=== PATIENT | female | born 1990 | race Caucasian/White ===

== ENCOUNTER 2016-08-12 13:26 | Emergency (ER) | payer MEDICAID, OTHER ==
[~2016-08-12] VITALS: Ht 152.4 cm; Wt 45.0 kg
[~2016-08-12 13:26] MED LIST: ACET325T33 PO; BACTDS PO; CEPH-443 PO; ELIM TOP; IBUP-1542 PO
[2016-08-12 13:35] VITALS: Ht 152.4 cm; Wt 45.0 kg
[2016-08-12] MEDS ORDERED: ONDANSETRON 4 MG INJ IV STA (15:50)
[2016-08-12] MEDS ORDERED: DICLOFENAC SODIUM 37.5 MG/ML VIAL IV STA (15:50)
[2016-08-12 16:56] LABS: ADD UMIC YES; URINE BILIRUBIN (Dip) 2+ (NEGATIVE); URINE BLOOD (Dip) 3+ (NEGATIVE); URINE COLOR BROWN (YELLOW); URINE GLUCOSE (Dip) NEGATIVE (NEGATIVE); URINE KETONES (Dip) TRACE (NEGATIVE); URINE LEUKOCYTE ESTERASE (Dip) 2+ (NEGATIVE); URINE NITRITE (Dip) POSITIVE (NEGATIVE); URINE TOTAL PROTEIN (Dip) 2+ (NEGATIVE); URINE UROBILINOGEN (Dip) 2.0 E.U./dL (0.1-1.0)
[2016-08-12 16:59] LABS: BASOPHIL # 0.1 10^3/ul (0.0-0.1); BASOPHILS % 0.3 % (0.0-2.0); EOSINOPHILS % 0.2 % (0.0-7.0); HEMATOCRIT 36.2 % (37.0-47.0); HEMOGLOBIN 12.5 g/dl (12.0-16.0); LYMPHOCYTES # 1.6 10^3/ul (0.8-2.9); LYMPHOCYTES % 10.8 % (15.0-51.0); MEAN CORPUSCULAR HGB CONC 34.4 g/dl (32.0-37.0); MEAN PLATELET VOLUME 9.4 fl (7.4-10.4); MONOCYTE # 0.8 10^3/ul (0.3-0.9); MONOCYTES % 5.6 % (0.0-11.0); NEUTROPHIL # 12.6 10^3/ul (1.6-7.5); NEUTROPHILS % 83.1 % (39.0-77.0); PLATELET COUNT 209 10^3/UL (140-440); RED BLOOD COUNT 4.02 10^6/ul (4.20-5.40); RED CELL DISTRIBUTION WIDTH 14.1 % (11.5-14.5); UNCORRECTED WBC 15.1 10^3/ul (4.8-10.8); WHITE BLOOD COUNT 15.1 10^3/ul (4.8-10.8)
[2016-08-12 17:00] LABS: CONDITION 1
[2016-08-12 17:19] LABS: ALBUMIN 3.7 g/dl (3.3-4.9)
[2016-08-12 17:20] LABS: POTASSIUM 3.6 mmol/L (3.5-5.1)
[2016-08-12 17:22] LABS: ALBUMIN/GLOBULIN RATIO 0.86; BILIRUBIN,INDIRECT 0.9 mg/dl (0-1.1); BILIRUBIN,TOTAL 0.9 mg/dl (0.2-1.3); CREATININE 0.56 mg/dl (0.44-1.00)
[2016-08-12 17:37] LABS: BACTERIA,URINE FEW; ICTOTEST NEGATIVE (NEGATIVE); SQUAMOUS EPITHELIAL CELL,UR MODERATE; URINE RBCS >200 /HPF (0)
[2016-08-12 17:38] LABS: TRICHOMONAS,URINE RARE
[2016-08-12] MEDS ORDERED: SOD CHLORIDE 0.9% 100 ML ONE (17:39)
[2016-08-12] MEDS ORDERED: IOHEXOL 300MG/ML 150 ML BTL ONE (17:39)
--- NOTE | 2016-08-12 18:23 | RADRPT ---
PROCEDURE: CT Abdomen and Pelvis with Contrast CLINICAL INDICATION: Abdominal pain TECHNIQUE: Transaxial images were obtained through the abdomen and pelvis on a multi-slice scanner following the intravenous administration of iodinated contrast. No oral contrast had previously be en given. Sagittal and coronal re-formations were subsequently reconstructed. One or more of the following dose reduction techniques were used: - Automated exposure control. - Adjustment of the mA and/or kV according to patient size. - Use of iterative reconstruction technique. Radiation dose: CTDIvol = 7.31 mGy; DLP = 358.22 mGy-cm. COMPARISON: No prior studies are available for comparison. FINDINGS: Lung bases: The visualized lung bases appear unremarkable. Liver: Normal in size and in attenuation. There is no focal lesion. The hepatic veins and portal vei ns appear patent. Gallbladder: The wall is not thickened. No radiopaque stones are identified. Bile ducts: The intra and extrahepatic bile ducts are normal in caliber. Pancreas: Appears normal with no mass or inflammation evident. Spleen: Normal in size with no focal lesion. Adrenals: Normal with no mass identified. Kidneys, ureters and bladder: The kidneys enhance normally and are normal in size and there is no ma ss, pathological calcification, or hydronephrosis evident. There is no perinephric stranding. The ur eters are normal in caliber and no ureteroliths are identified. The bladder is less than optimally d istended. Reproductive organs: The uterus is enlarged and there is thickening of the endometrial cavity which appears heterogeneous with a 10.7 by 2.7 x 1.8 cm focal area of increased density seen in the fundal endometrial cavity suspicious for clot. There is hypervascularity about the uterus. There is a 2. 5 cm in maximal diameter right adnexal cyst. Stomach, bowel, and mesentery: The stomach appears unremarkable. Substantial stool is seen within t he colon particularly on the right but there is no evidence of bowel obstruction or inflammation. Appendix: A normal-appearing vermiform appendix is evident. Peritoneum: There is no free intraperitoneal fluid or air. Aorta: Normal in caliber with no aneurysmal dilatation. IVC: Unremarkable. Lymph nodes: No pathologically enlarged nodes are identified. Osseous structures: The osseous elements appear intact. IMPRESSION: 1. Enlarged hypervascular uterus with thickening of the endometrial cavity which appears to contain some clot. Correlation with pelvic sonography may be useful to further evaluate. A 2.4 cm in maxi mal diameter right adnexal cyst is noted. 2. No evidence of bowel obstruction or inflammation. Substantial stool is seen within the colon an d there is a normal-appearing vermiform appendix. 3. No evidence of urinary outflow obstruction or ureterolithiasis. 4. There is no free intraperitoneal fluid or air. 5. Otherwise, unremarkable CT scan of the abdomen and pelvis. Physician Mauro Date Time Electronically viewed and signed by Cody Michaels Physician on 08/12/2016 18:23 RH/
[2016-08-12] MEDS ORDERED: CEFTRIAXONE 1 GM/50 ML (PMX) 50 ML IVPB ONE (19:00)
[2016-08-12] MEDS ORDERED: IBUP-1542 PO (19:36)
[2016-08-12] MEDS ORDERED: CEPH-443 PO (19:36)
--- NOTE | 2016-08-12 19:39 | ERD ---
ER Documentation Chief Complaint Date/Time DATE: 08/12/16 TIME: 19:37 Chief Complaint AP HPI This 25-year-old female presents with lower abdominal pain for last day. She said when she pushed on her lower abdomen she had vaginal bleeding. She denies fevers, vomiting, urinary complaints. She denies . ROS All systems reviewed and are negative except as per history of present illness. Medications Home Meds Active Scripts Ibuprofen* (Motrin*) 600 Mg Tab, 600 MG PO Q6, #15 TAB Prov:GRZEGORZ KOTHARI MD 08/12/16 Cephalexin* (Keflex*) 500 Mg Capsule, 500 MG PO QID for 5 Days, CAP Prov:GRZEGORZ KOTHARI MD 08/12/16 Ibuprofen* (Motrin*) 600 Mg Tab, 600 MG PO Q6H Y for PAIN AND OR ELEVATED TEMP, #30 TAB Prov:PAO CARNEY MD 02/14/16 Sulfamethoxazole-Trimethoprim* (Bactrim* DS) 800-160 Mg Tab, 1 TAB PO BID for 7 Days, TAB Prov:PAO CARNEY MD 02/14/16 Cephalexin* (Keflex*) 500 Mg Capsule, 500 MG PO QID for 7 Days, CAP Prov:PAO CARNEY MD 02/14/16 Acetaminophen* (Tylenol*) 325 Mg Tablet, 1 TAB PO Q6 Y for PAIN AND OR ELEVATED TEMP, #20 TAB Prov:LISA THOMAS PA-C 02/14/16 Permethrin* (Elimite*) 5% Cr, 1 APPLIC TOP ONCE, #1 TUB Keep on for 12 hours and rinse after. Repeat in 1 week. Prov:LISA THOMAS-C 02/14/16 Cephalexin* (Keflex*) 500 Mg Capsule, 500 MG PO QID for 7 Days, CAP Prov:LISA THOMAS-C 02/14/16 Sulfamethoxazole-Trimethoprim* (Bactrim* DS) 800-160 Mg Tab, 1 TAB PO BID for 7 Days, TAB Prov:LISA THOMAS-C 02/14/16 Ibuprofen* (Motrin*) 600 Mg Tab, 600 MG PO Q8 for PAIN AND/OR INFLAMMATION, #30 TAB Prov:FER WINTER MD 12/24/15 Allergies Allergies: Coded Allergies: prochlorperazine (Verified Allergy, Mild, RASH, 08/12/16) PMhx/Soc History of Surgery: Yes (C section X3) Anesthesia Reaction: No Hx Neurological Disorder: No Hx Respiratory Disorders: No Hx Cardiac Disorders: No Hx Psychiatric Problems: No Hx Miscellaneous Medical Probl: No Hx Alcohol Use: No Hx Substance Use: Yes (Methamphetamine) Hx Tobacco Use: No Smoking Status: Former smoker Physical Exam Vitals Vital Signs Date Time Temp Pulse Resp B/P Pulse Ox O2 Delivery O2 Flow Rate FiO2 08/12/16 13:35 98.1 126 20 140/67 99 Physical Exam Const: [] Alert, [id number], disheveled. Head: Atraumatic Eyes: Normal Conjunctiva ENT: Normal External Ears, Nose and Mouth. Neck: Full range of motion..~ No meningismus. Resp: Clear to auscultation bilaterally Cardio: Regular rate and rhythm, no murmurs Abd: Soft, minimal suprapubic tenderness. No tenderness at McBurney's point no rebound. No Coronado sign. R, non distended. Normal bowel sounds Skin: No petechiae or rashes Back: No midline or flank tenderness Ext: No cyanosis, or edema Neur: Awake and alert Psych: Normal Mood and Affect Result Diagram: 08/12/16 1625 08/12/16 1625 Results 24 hrs Laboratory Tests Test 08/12/16 16:25 Alanine Aminotransferase (ALT/SGPT) 22IU/L Albumin 3.7g/dl Albumin/Globulin Ratio 0.86 Alkaline Phosphatase 118IU/L Anion Gap 17 Aspartate Amino Transf (AST/SGOT) 16IU/L Basophils # 0.110^3/ul Basophils % 0.3% Blood Urea Nitrogen 9mg/dl Calcium Level 9.0mg/dl Carbon Dioxide Level 29mmol/L Chloride Level 99mmol/L Creatinine 0.56mg/dl Direct Bilirubin 0.00mg/dl Eosinophils # 0.010^3/ul Eosinophils % 0.2% Globulin 4.30g/dl Glucose Level 89mg/dl Hematocrit 36.2% Hemoglobin 12.5g/dl Indirect Bilirubin 0.9mg/dl Lipase 15U/L Lymphocytes # 1.610^3/ul Lymphocytes % 10.8% Mean Corpuscular Hemoglobin 31.0pg Mean Corpuscular Hemoglobin Concent 34.4g/dl Mean Corpuscular Volume 90.0fl Mean Platelet Volume 9.4fl Monocytes # 0.810^3/ul Monocytes % 5.6% Neutrophils # 12.610^3/ul Neutrophils % 83.1% Nucleated Red Blood Cells # 0.010^3/ul Nucleated Red Blood Cells % 0.0/100WBC Platelet Count 40959^3/UL Potassium Level 3.6mmol/L Red Blood Count 4.0210^6/ul Red Cell Distribution Width 14.1% Sodium Level 141mmol/L Total Bilirubin 0.9mg/dl Total Protein 8.0g/dl Urine Bacteria FEW Urine Bilirubin 2+ Urine Clarity CLOUDY Urine Color BROWN Urine Glucose NEGATIVE% Urine Hemoglobin 3+ Urine Ictotest NEGATIVE Urine Ketones TRACE Urine Leukocyte Esterase 2+ Urine Microscopic RBC >200/HPF Urine Microscopic WBC 5-10/HPF Urine Nitrite POSITIVE Urine Specific [place] 1.025 Urine Squamous Epithelial Cells MODERATE Urine Total Protein 2+ Urine Trichomonas RARE Urine Urobilinogen 2.0 E.U./dL Urine pH 5.5 White Blood Count 15.110^3/ul Current Medications Medications (Trade) Dose Ordered Sig/Nando Route PRN Reason Start Time Stop Time Status Last Admin Dose Admin Ondansetron HCl (Zofran Inj) 4 mg ONCE STAT IV 08/12/16 15:50 08/12/16 15:52 DC 08/12/16 16:36 Diclofenac Sodium (Dyloject) 37.5 mg ONCE STAT IV 08/12/16 15:50 08/12/16 15:52 DC 08/12/16 16:36 IV Flush 10 ml 10 ml STK-MED ONCE .ROUTE 08/12/16 17:39 08/12/16 17:40 DC 08/12/16 17:53 Sodium Chloride (NS) 100 ml @ ud STK-MED ONCE .ROUTE 08/12/16 17:39 08/12/16 17:40 DC 08/12/16 17:53 Iohexol 150 ml 150 ml STK-MED ONCE .ROUTE 08/12/16 17:39 08/12/16 17:40 DC 08/12/16 17:53 Ceftriaxone Sodium (Rocephin) 50 ml @ 100 mls/hr ONCE ONCE IVPB 08/12/16 19:00 2/1/17 19:29 DC 08/12/16 19:15 Procedures/MDM Urine shows leukocytes, nitrites, blood without glucose. HCG is negative. CBC shows leukocytosis of 15. CMP is normal. Given the uncertain cause of pain CT abdomen and pelvis was performed which showed some blood in the endometrial cavity without signs or symptoms of abscess, perforation, other signs of acute abdomen. Patient was given an object IV, Zofran 4 mg IV Rocephin 1 g IV after review of UTI. Patient had a benign abdomen on serial exam. Patient has lower abdominal pain associated with vaginal bleeding of uncertain etiology. She appears to have dysfunctional uterine bleeding and was treated for UTI as well. There is no signs or symptoms of obstruction, appendicitis, acute abdomen. She will be discharged home with prescription of Keflex and ibuprofen and instructed to return for fevers, vomiting, new or worsening symptoms with primary care doctor this week. Urine was sent for gonorrhea and chlamydia. Departure Diagnosis: Primary Impression: UTI (urinary tract infection) Urinary tract infection type: acute cystitis Hematuria presence: without hematuria Qualified Code: N30.00 - Acute cystitis without hematuria Additional Impression: Abdominal pain Abdominal location: lower abdomen, unspecified Qualified Code: R10.30 - Lower abdominal pain Condition: Stable Patient Instructions: Abdominal Pain, Understanding Urinary Tract Infections ( UTIs) Additional Instructions: Urine shows signs of infection we will treat for this. CT scan shows only blood in the menstrual cavity. Recheck for fevers, vomiting, new or worsening symptoms with primary care doctor this week. GRZEGORZ KOTHARI MD Aug 12, 2016 19:39
[2016-08-12 20:09] VITALS: BP 108/53; PULSE 111; RESP 17; TEMP 98.2
== END 2016-08-12 20:10 | disposition home or self-care (01) ==
LOC: FTE 13:26
DX: N30.00 Acute cystitis without hematuria (principal); R10.2 Pelvic and perineal pain; Z87.891 Personal history of nicotine dependence
CPT/HCPCS: 36415; 74177; 80053; 81001; 83690; 85025; 87591; 96374; 96375; 99285; J0696; J2405; Q9967; 81003

== ENCOUNTER 2018-01-21 00:04 | Emergency (ER) | END 2018-01-21 06:15 | disposition home or self-care (01) ==

== ENCOUNTER 2018-06-17 12:46 | Outpatient (CLI) | payer OTHER ==
[~2018-06-17] VITALS: Ht 162.6 cm; Wt 62.8 kg
[2018-06-17 12:58] VITALS: Ht 162.6 cm; Wt 62.8 kg
[2018-06-17 12:59] VITALS: BP 108/71
[2018-06-17] MEDS ORDERED: PREN1TAB71 PO (13:02)
[2018-06-17] MEDS ORDERED: CEPH-443 PO (15:00)
[2018-06-17] MEDS ORDERED: SILV20CR13 TOP (15:00)
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
== END 2018-06-17 14:30 | disposition home or self-care (01) ==
LOC: OBT 12:46 → L-D 12:46 → OBT 14:30
PROVIDERS: ATTEND Obstetrics & Gynecology
DX: O26.893 Other specified pregnancy related conditions, third trimester (principal); Z3A.36 36 weeks gestation of pregnancy; T25.012A Burn of unspecified degree of left ankle, initial encounter; T31.0 Burns involving less than 10% of body surface; X08.8XXA Exposure to other specified smoke, fire and flames, initial encounter
CPT/HCPCS: 76818; Z7500; G0463

== ENCOUNTER 2018-06-17 14:39 | Emergency (ER) | END 2018-06-17 15:42 | disposition home or self-care (01) ==

== ENCOUNTER 2018-09-12 11:46 | Emergency (ER) | payer OTHER ==
[~2018-09-12] VITALS: Ht 157.5 cm; Wt 45.6 kg
[~2018-09-12 11:46] MED LIST changes: -ACET325T33 PO; -BACTDS PO; -ELIM TOP; -IBUP-1542 PO; +PREN1TAB71 PO; +SILV20CR13 TOP
[2018-09-12 12:01] VITALS: BP 124/55; PULSE 91; RESP 20; Ht 157.5 cm; Wt 45.6 kg
[2018-09-12] MEDS ORDERED: IBUP-1542 PO (13:41)
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
== END 2018-09-12 13:42 | disposition home or self-care (01) ==
LOC: E/R 11:46
DX: R22.0 Localized swelling, mass and lump, head (principal); R07.9 Chest pain, unspecified
CPT/HCPCS: 70450; 70486; 71045; Z7502

== ENCOUNTER 2018-10-21 15:54 | Emergency (ER) | payer OTHER ==
[~2018-10-21] VITALS: Ht 162.6 cm; Wt 50.0 kg
[~2018-10-21 15:54] MED LIST changes: +IBUP-1542 PO
[2018-10-21 16:03] VITALS: Ht 162.6 cm; Wt 50.0 kg
[2018-10-21] MEDS ORDERED: IBUPROFEN 200 MG TAB PO ONE (17:30)
[2018-10-21] MEDS ORDERED: HYDROCODONE/APAP (5/325) TAB PO ONE (17:30)
[2018-10-21] MEDS ORDERED: AZIT250T PO (18:23)
[2018-10-21] MEDS ORDERED: IBUP-1561 PO (18:23)
[2018-10-21] MEDS ORDERED: HYDR-4011 PO (18:23)
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
[2018-10-21 18:45] VITALS: BP 107/58; PULSE 104; RESP 18
== END 2018-10-21 18:45 | disposition home or self-care (01) ==
LOC: FTE 15:54
DX: S22.41XA Multiple fractures of ribs, right side, initial encounter for closed fracture (principal); Y09 Assault by unspecified means
CPT/HCPCS: 71100; Z7502; Z7610